=== PATIENT | male | born 1940 | race Two or more races ===

== ENCOUNTER → 2018-09-07 | Outpatient (CLI) | payer MEDICARE, BC | END | disposition home or self-care (01) | LOC: HKI 10:01 | DX: M25.562 Pain in left knee (principal); M25.462 Effusion, left knee | CPT/HCPCS: 73562; 73562-50 ==

== ENCOUNTER → 2018-09-09 | Outpatient (CLI) | payer MEDICARE, BC | END | disposition home or self-care (01) | LOC: HKI 15:31 | DX: M25.562 Pain in left knee (principal); M17.12 Unilateral primary osteoarthritis, left knee | CPT/HCPCS: 20610 ==